=== PATIENT | male | born 1935 | race Caucasian/White ===

== ENCOUNTER 2021-01-27 14:41 | Outpatient (CLI) | payer MEDICARE ==
[~2021-01-27] VITALS: Ht 170.2 cm; Wt 70.4 kg
[2021-01-27] VITALS (7 sets, daily range): BP systolic 147–167; BP diastolic 59–95; PULSE 59–70; TEMP 96.4
[~2021-01-27 14:41] MED LIST: ADVIL 200MG TA200 MG PO; CEPHALEXIN500 M1 PO; DESYREL; LORTAB 2.5/5001 TAB PO; MULTIPLE VITAMI1 TAB PO; MVI; [UNRECOGNIZED DRUG - REMARK]
[2021-01-27] MEDS ORDERED: VITAMIN C500 MG PO (15:18)
[2021-01-27] MEDS ORDERED: PHARMASSURE ZIN50 MG PO (15:18)
[2021-01-27] MEDS ORDERED: VITAMIN D31000 I1 PO (15:18)
--- NOTE | 2021-01-27 16:35 | NUR ---
Pt tolerated infusion and 1 hr obs period without issue. INT DC'd with catheter intact. Pt was escorted out to ED entrance.
== END 2021-01-27 16:35 | disposition home or self-care (01) ==
LOC: EUO 14:41
DX: U07.1 COVID-19 (principal)
CPT/HCPCS: M0243; Q0244